=== PATIENT | female | born 1930 ===

== ENCOUNTER 2020-08-24 11:53 | Emergency (ER) | payer MEDICARE ==
[~2020-08-24] VITALS: Ht 160 cm; Wt 68.0 kg
[2020-08-24] MEDS ORDERED: Flagyl500 MG PO (12:30)
[2020-08-24] MEDS ORDERED: Cipro500 MG PO (12:30)
[2020-08-24] MEDS ORDERED: HYDR1TAB94 PO (12:31)
[2020-08-24] MEDS ORDERED: COLACE100 MG PO (12:31)
== END 2020-08-24 12:45 | disposition home or self-care (01) ==
LOC: ER 11:53
DX: L03.116 Cellulitis of left lower limb (principal); B96.5 Pseudomonas (aeruginosa) (mallei) (pseudomallei) as the cause of diseases classified elsewhere
CPT/HCPCS: 87070; 87075; 87077; 87186; 87205; 99283

== ENCOUNTER 2021-01-29 08:51 | Day surgery (SDC) | payer MEDICARE ==
[~2021-01-29 08:51] MED LIST: COLACE100 MG PO; Cipro500 MG PO; Flagyl500 MG PO; HYDR1TAB94 PO
== END 2021-01-29 22:59 | disposition home or self-care (01) ==
LOC: WOUND 08:51
DX: L97.822 Non-pressure chronic ulcer of other part of left lower leg with fat layer exposed (principal); J44.9 Chronic obstructive pulmonary disease, unspecified
CPT/HCPCS: A9270; G0463

== ENCOUNTER 2021-02-06 00:19 | Day surgery (SDC) | payer MEDICARE | END 2021-02-06 22:58 | disposition home or self-care (01) | LOC: WOUND 00:19 | DX: L97.822 Non-pressure chronic ulcer of other part of left lower leg with fat layer exposed (principal); L03.116 Cellulitis of left lower limb | CPT/HCPCS: 87070; 87075; 87077; 87147; 87186; 87205; A9270 ==

== ENCOUNTER 2021-02-13 00:36 | Day surgery (SDC) | payer MEDICARE | END 2021-02-13 22:50 | disposition home or self-care (01) | LOC: WOUND 00:36 | DX: L97.822 Non-pressure chronic ulcer of other part of left lower leg with fat layer exposed (principal); L03.116 Cellulitis of left lower limb; J44.9 Chronic obstructive pulmonary disease, unspecified | CPT/HCPCS: A9270 ==

== ENCOUNTER 2021-02-21 00:26 | Day surgery (SDC) | payer MEDICARE | END 2021-02-21 22:43 | disposition home or self-care (01) | LOC: WOUND 00:26 | DX: L97.822 Non-pressure chronic ulcer of other part of left lower leg with fat layer exposed (principal); J44.9 Chronic obstructive pulmonary disease, unspecified | CPT/HCPCS: A9270 ==

== ENCOUNTER 2021-02-28 01:26 | Day surgery (SDC) | payer MEDICARE | END 2021-02-28 23:05 | disposition home or self-care (01) | LOC: WOUND 01:26 | DX: L97.822 Non-pressure chronic ulcer of other part of left lower leg with fat layer exposed (principal); J44.9 Chronic obstructive pulmonary disease, unspecified | CPT/HCPCS: A9270 ==